=== PATIENT | male | born 1995 | race Caucasian/White ===

== ENCOUNTER → 2024-08-05 07:20 | Outpatient (CLI) | payer BC, SELFPAY ==
--- NOTE | 2024-08-05 07:24 | DI.US.S_ITS ---
PROCEDURE: US SCROTUM INDICATIONS: RIGHT TESTICULAR PAIN TECHNIQUE: Real-time scanning was performed of the scrotum and testicles, with image documentation. Color and pulse Doppler interrogation was performed of both testicles. COMPARISON: None. FINDINGS: Right: Testicle is normal in size at 4.5 x 2.8 x 2 cm, and homogenous in echotexture. Epididymis is normal in overall size and morphology. No hydrocele. Varicocele is present. Overlying scrotal skin is normal in thickness. Left: Testicle is normal in size at 4.4 x 2.8 x 1.9 cm, and homogeneous in echotexture. Epididymis is normal in overall size and morphology. No hydrocele. Varicocele is present. Overlying scrotal skin is normal in thickness. Doppler: Color and pulse Doppler demonstrate normal and symmetric arterial flow in both testicles. IMPRESSION: 1. No hyperemia to suggest epididymitis. No testicular torsion. 2. No testicular mass. 3. Bilateral varicoceles. Dictated by: Indra Magana M.D. on 08/05/2024 at 10:15 Approved by: Indra Magana M.D. on 08/05/2024 at 10:17
== END ==
LOC: US 07:23
PROVIDERS: Family Provider Family Medicine; PCP Family Medicine; Referring Provider Family Medicine; Visit Provider Family Medicine
DX: N50.811 Right testicular pain (principal); I86.1 Scrotal varices
CPT/HCPCS: 76870; 93975